=== PATIENT | female | born 1995 | race Hispanic/Latino ===

== ENCOUNTER 2023-07-30 05:30 | Inpatient (IN) | payer MEDICAID, OTHER ==
[2023-07-30] MEDS ORDERED: fentaNYL 50 mcg/mL 1 mL Vial SLOW IVP PRN ×2 (06:40→23:22)
[2023-07-30] MEDS ORDERED: hydrALAZINE 20 MG/ML VIAL SLOW IVP PRN (06:40)
[2023-07-30] MEDS ORDERED: Ondansetron PF 4 MG/2 ML Vial IVP PRN ×4 (06:40→23:22)
[2023-07-30] MEDS ORDERED: Promethazine HCl 25 MG/ML VIAL IM PRN ×3 (06:40→23:22)
[2023-07-30] MEDS ORDERED: Lidocaine 1% (PF) 30 ML VIAL SC PRN (06:40)
[2023-07-30] MEDS ORDERED: Ibuprofen 800 MG TAB PO PRN (06:40)
[2023-07-30] MEDS ORDERED: HYDROcodone/Acetaminophen 5/325 mg Tablet PO PRN ×2 (06:40)
[2023-07-30] MEDS ORDERED: Oxytocin 30 units/NS 500 ML 500 ML IV SCH ×3 (06:45)
[2023-07-30] MEDS: Lactated Ringer's 1,000 ML IV SCH ×2 (07:35→16:49)
[2023-07-30] MEDS ORDERED: Oxytocin 30 units/NS 500 ML 500 ML ONE (07:39)
[2023-07-30] MEDS ORDERED: Bupivacaine PF 0.5% 30 ML VIAL ONE (08:00)
[2023-07-30 08:05] VITALS: BMI 37.7
[2023-07-30 08:30] LABS: Hematocrit 38.8 % (34.9-44.5); Hemoglobin 13.7 g/dL (12.0-15.5); Mean Corpuscular HGB CONC 35.3 g/dL (32.0-36.0); Mean Corpuscular Hemoglobin 30.9 pg (27.0-33.0); Mean Corpuscular Volume 87.6 fl (81.6-98.3); Mean Platelet Volume 12.6 fl (7.4-10.4); Platelet Count 161 10x3/uL (150-450); RBC Distribution Width 13.2 % (11.5-14.5); Red Blood Cell (RBC) Count 4.43 10x6/uL (3.90-5.03); White Blood Cell (WBC) Count 11.8 10x3/uL (3.5-10.5)
[2023-07-30 09:32] LABS: Syphilis Antibody Nonreactive (Nonreactive); Syphilis Antibody Index 0.03 S/CO (<1.00 Non-Reactive)
[2023-07-30 09:33] LABS: HBSAg Index 0.17 S/CO (0-0.99); Hep B Surf Ag - L&D Non-Reactive S/CO (NonReactive)
[2023-07-30] MEDS ORDERED: fentaNYL/Ropivacaine Epidural 100 ML ONE (20:12)
[2023-07-30] MEDS ORDERED: ePHEDrine Sulfate 50 MG/10 ML VIAL SLOW IVP PRN (21:28)
[2023-07-30] MEDS ORDERED: Acetaminophen 325 MG TAB PO PRN (21:28)
[2023-07-30] MEDS ORDERED: diphenhydrAMINE 50 MG/ML VIAL IVP PRN ×2 (21:28→23:22)
[2023-07-30] MEDS ORDERED: Moisturizing Cream (Eucerin) 113 GM JAR TOP PRN ×2 (21:28→23:22)
[2023-07-30] MEDS ORDERED: Lactated Ringer's 500 ML IV PRN (21:28)
[2023-07-30] MEDS ORDERED: Naloxone HCl 0.4 mg/ml Vial IVP PRN ×4 (21:28→23:22)
[2023-07-30] MEDS ORDERED: Communication Order-Pharmacy FS SCH ×2 (21:30→23:30)
[2023-07-30] MEDS ORDERED: fentaNYL 2 mcg/Ropivacaine 0.2% Epidural 100 ML CADD EPIDURAL SCH (21:30)
[2023-07-30] MEDS ORDERED: Calcium Carbonate 500 MG ChewTAB PO SCH (21:45)
[2023-07-30] MEDS ORDERED: CEFAZOLIN 2 GM VIAL ONE (22:14)
[2023-07-30] MEDS ORDERED: Azithromycin 500 MG VIAL ONE (22:15)
[2023-07-30] MEDS ORDERED: Bicitra 30 ML UDCUP PO PRN (22:20)
[2023-07-30] MEDS ORDERED: Famotidine/PF 20 mg/2ml Vial SLOW IVP PRN (22:20)
[2023-07-30] MEDS ORDERED: Oxytocin 10 UNITS/ML VIAL ONE (22:23)
[2023-07-30] MEDS ORDERED: Azithromycin 500 MG in Sodium Chloride 0.9% 250 ML 250 ML IVPB SCH (22:30)
[2023-07-30] MEDS ORDERED: CEFAZOLIN 2 GM in Sodium Chloride 0.9% 100 ML IVPB SCH (22:30)
[2023-07-30] MEDS ORDERED: Morphine PF 10 MG/10 ML VIAL ONE (22:31)
[2023-07-30] MEDS ORDERED: Ondansetron PF 4 MG/2 ML Vial ONE (22:33)
[2023-07-30] MEDS ORDERED: PHENYLEPHRINE-NS 100 MCG/ML 10 ML SYRINGE ONE (22:33)
[2023-07-30] MEDS ORDERED: Carboprost 250 MCG/ML AMP ONE (22:46)
[2023-07-30] MEDS ORDERED: Methylergonovine 0.2 MG/ML VIAL ONE (22:47)
[2023-07-30] MEDS ORDERED: Naloxone HCl 0.4 mg/ml Vial IV PRN (23:22)
[2023-07-30] MEDS ORDERED: Promethazine HCl 25 MG SUPP PR PRN (23:22)
[2023-07-30] MEDS ORDERED: Meperidine HCl/PF 25 MG/ML VIAL SLOW IVP PRN (23:22)
[2023-07-30] MEDS ORDERED: Ketorolac Tromethamine 30 MG/ML VIAL IVP PRN (23:22)
[2023-07-30] MEDS ORDERED: Ketorolac Tromethamine 30 MG/ML VIAL IVP SCH (23:30)
[2023-07-31] MEDS: Lactated Ringer's 1,000 ML IV SCH (00:46)
[2023-07-31] MEDS ORDERED: Boostrix 0.5 ML (Tdap) VIAL (>/=7 yrs of age) IM ONE (01:27)
[2023-07-31] MEDS ORDERED: Oxytocin 30 units/NS 500 ML 500 ML IV SCH (01:27)
[2023-07-31] MEDS ORDERED: Lanolin Ointment 7 GM TUBE TOP PRN (01:27)
[2023-07-31] MEDS ORDERED: hydrALAZINE 20 MG/ML VIAL SLOW IVP PRN (01:27)
[2023-07-31] MEDS ORDERED: diphenhydrAMINE 25 MG CAP PO PRN (01:27)
[2023-07-31] MEDS ORDERED: Ondansetron PF 4 MG/2 ML Vial IVP PRN (01:27)
[2023-07-31] MEDS ORDERED: Simethicone Chewable 80 MG TAB PO PRN (01:27)
[2023-07-31] MEDS ORDERED: Bisacodyl 10 MG SUPP PR PRN (01:27)
[2023-07-31 03:17] LABS: Hematocrit 32.7 % (34.9-44.5); Hemoglobin 11.9 g/dL (12.0-15.5); Mean Corpuscular HGB CONC 36.4 g/dL (32.0-36.0); Mean Corpuscular Hemoglobin 32.1 pg (27.0-33.0); Mean Corpuscular Volume 88.1 fl (81.6-98.3); Mean Platelet Volume 11.8 fl (7.4-10.4); Platelet Count 151 10x3/uL (150-450); RBC Distribution Width 12.7 % (11.5-14.5); Red Blood Cell (RBC) Count 3.71 10x6/uL (3.90-5.03); White Blood Cell (WBC) Count 17.6 10x3/uL (3.5-10.5)
[2023-07-31] MEDS: Ferrous Sulfate 325 MG TAB PO SCH (08:01)
[2023-07-31] MEDS: Docusate 100 MG CAP PO SCH ×2 (08:11→21:20)
[2023-07-31] MEDS: Prenatal Vitamin 1 TAB PO SCH (08:11)
[2023-07-31] MEDS ORDERED: HYDROcodone/Acetaminophen 5/325 mg Tablet PO PRN (11:30)
[2023-07-31] MEDS: HYDROcodone/Acetaminophen 5/325 mg Tablet PO PRN ×2 (18:14→22:17)
[2023-08-01] MEDS: Ibuprofen 800 MG TAB PO SCH ×3 (01:43→18:02)
[2023-08-01] MEDS: HYDROcodone/Acetaminophen 5/325 mg Tablet PO PRN (04:54)
[2023-08-01] MEDS ORDERED: Ibuprofen 800 MG TAB PO PRN (06:00)
[2023-08-01] MEDS ORDERED: Ibuprofen 800 MG TAB PO SCH (06:00)
[2023-08-01] MEDS: Ferrous Sulfate 325 MG TAB PO SCH ×2 (07:37→22:06)
[2023-08-01] MEDS: Docusate 100 MG CAP PO SCH ×2 (09:25→21:51)
[2023-08-01] MEDS: Prenatal Vitamin 1 TAB PO SCH (09:25)
[2023-08-02] MEDS: Ibuprofen 800 MG TAB PO SCH ×2 (01:45→09:44)
[2023-08-02] MEDS: Docusate 100 MG CAP PO SCH (08:39)
[2023-08-02] MEDS: Prenatal Vitamin 1 TAB PO SCH (08:39)
[2023-08-02] MEDS: Ferrous Sulfate 325 MG TAB PO SCH (08:40)
[2023-08-02 10:16] VITALS: BP 113/63; TEMP 98
== END 2023-08-02 13:25 | disposition home or self-care (01) | DRG 788 ==
LOC: CSHLD 05:34 → OBSVTOIN 05:35 → CSHPP 07-31 01:42
PROVIDERS: ADMIT Obstetrics & Gynecology; ATTEND Obstetrics & Gynecology
PROC: 3E0P7VZ Introduction of Hormone into Female Reproductive, Via Natural or Artificial Opening (ICD-10-PCS; principal; 2023-07-30)
PROC: 10D00Z1 Extraction of Products of Conception, Low, Open Approach (ICD-10-PCS; 2023-07-30)
PROC: 10907ZC Drainage of Amniotic Fluid, Therapeutic from Products of Conception, Via Natural or Artificial Opening (ICD-10-PCS; 2023-07-30)
PROC: 10H07YZ Insertion of Other Device into Products of Conception, Via Natural or Artificial Opening (ICD-10-PCS; 2023-07-30)
DX: O48.0 Post-term pregnancy (principal); Z3A.40 40 weeks gestation of pregnancy; Z37.0 Single live birth; O62.1 Secondary uterine inertia; O76 Abnormality in fetal heart rate and rhythm complicating labor and delivery; O32.8XX0 Maternal care for other malpresentation of fetus, not applicable or unspecified
CPT/HCPCS: 36415; 85027; 86780; 86850; 86900; 86901; 87340; J1885; J2274; J2405; J2550; J2590; J3010; J7120; S0020